=== PATIENT | male | born 1995 ===

== ENCOUNTER → 2016-04-12 | Outpatient (CLI) | payer OTHER ==
--- NOTE | 2016-04-12 12:12 | DX ---
Right Ankle Series, 3 Views History: Pain following trauma. Findings: A fracture is not identified. The bone alignment is normal. The ankle mortise has a normal contour. Soft tissue swelling is seen more pronounced laterally. No radiopaque foreign body is identi fied. Impression: Negative for fracture.
== END ==
LOC: BMCIMAGING 11:06
PROVIDERS: ATTEND Family Medicine
DX: S99.911A Unspecified injury of right ankle, initial encounter (principal); W18.49XA Other slipping, tripping and stumbling without falling, initial encounter